=== PATIENT | female | born 1985 | race Caucasian/White ===

== ENCOUNTER 2025-03-31 13:02 | Outpatient (CLI) | payer OTHER | END 2025-03-31 13:50 | disposition home or self-care (01) | LOC: NST 13:02 | PROVIDERS: ATTEND Obstetrics & Gynecology | DX: Z34.83 Encounter for supervision of other normal pregnancy, third trimester (principal) ==

== ENCOUNTER 2025-04-08 05:44 | Inpatient (IN) | payer OTHER ==
[2025-04-08] VITALS (8 sets, daily range): BP systolic 122–149; BP diastolic 69–98
[~2025-04-08] VITALS: Ht 167.6 cm; Wt 83.5 kg
[2025-04-08] MEDS ORDERED: RINGERS SOLUTION,LACTATED 1,000 ML IV SCH (06:15)
[2025-04-08] MEDS ORDERED: OXYTOCIN 500 ML IV SCH (06:15)
[2025-04-08] MEDS ORDERED: CHILDREN'S ASPI81 MG PO (07:18)
[2025-04-08] MEDS ORDERED: PRENATAL TABLE1 EAC1 PO (07:20)
[2025-04-08] MEDS ORDERED: OXYTOCIN 500 ML IV ONE (07:30)
[2025-04-08 08:07] LABS: URINE APPEARANCE Clear; URINE BILIRRUBIN Negative (NEGATIVE); URINE BLOOD Small; URINE COLOR Yellow; URINE GLUCOSE Negative (NEGATIVE); URINE KETONE Negative (NEGATIVE); URINE LEUKOCYTE Trace; URINE NITRATE Negative; URINE PROTEIN Negative (NEGATIVE); URINE UROBILINOGEN 0.2 E.U./dl
[2025-04-08 08:09] LABS: URINE BACTERIA 92.3 uL (0.0-1933); URINE CAST 0.00 uL (0.0-1.40); URINE EPITHELIAL CELLS 5.5 uL (0.0-38.8); URINE RBC 78.3 uL (0.0-20.8); URINE WBC 6.1 uL (0.0-23.2)
[2025-04-08 08:10] LABS: BASO % 0.5 % (0.1-1.2); EOS # 0.05 (0.04-0.54); EOS % 0.6 % (0.7-7.0); LYMPH # 1.62 (1.18-3.74); LYMPH % 19.4 % (19.3-53.1); MONO # 0.56 (0.24-0.82); MONO % 6.7 % (4.7-12.5); NEUT # 6.06 (1.56-6.13); NEUT % 72.3 % (34.0-71.1); RED CELL DISTRIBUTION WIDTH 13.5 % (11.6-14.4)
[2025-04-08 08:33] LABS: INR 0.94
[2025-04-08 08:54] LABS: ALT/SGPT 25.0 U/L (12-78); AST/SGOT 23.0 U/L (15-37); BILIRUBIN TOTAL 0.44 mg/dL (0.3-1.2); BUN CREA RATIO 14.0 (7.0-25.0); CREATININE SERUM 0.7 mg/dL (0.55-1.02); GFR 93.16; GLOBULINA 4.2 G/DL (2.4-3.5); GLUCOSE FASTING 65.0 mg/dL (65-100); OSMOLALITY SERUM 277.0 MOSM/KG (275-295)
[2025-04-08] MEDS ORDERED: MORPHINE SULFATE 4 MG/ML CARTRIDGE IV PRN (15:00)
[2025-04-08] MEDS ORDERED: OXYTOCIN 1,000 ML IV SCH (16:30)
[2025-04-08] MEDS ORDERED: CHLORHEXIDINE GLUCONATE 120 ML BOTTLE TOP ONE (16:30)
[2025-04-08] MEDS ORDERED: DOCUSATE SODIUM 100MG CAP PO SCH (17:00)
[2025-04-09 02:27] VITALS: BP 124/81
[2025-04-09 06:23] LABS: BASO % 0.2 % (0.1-1.2); EOS # 0.06 (0.04-0.54); EOS % 0.5 % (0.7-7.0); LYMPH # 1.65 (1.18-3.74); LYMPH % 13.6 % (19.3-53.1); MEAN PLATELET VOLUME 14.00 fl (9.4-12.4); MONO # 0.90 (0.24-0.82); MONO % 7.4 % (4.7-12.5); NEUT # 9.44 (1.56-6.13); NEUT % 78.0 % (34.0-71.1); RED CELL DISTRIBUTION WIDTH 13.4 % (11.6-14.4)
[2025-04-09 08:00] VITALS: BP 110/65
[2025-04-09] MEDS ORDERED: PNV,CALCIUM 72/IRON/FOLIC ACID 1 TAB TABLET PO SCH (09:00)
[2025-04-09] MEDS ORDERED: IRON/V.C/V.B12/FOLIC A/VIT. E 1 CAPL CAPLET PO SCH (09:00)
[2025-04-09 16:42] VITALS: BP 130/80
[2025-04-09] MEDS ORDERED: HYDROCORTISONE 2.5% 30 GM TUBE RECTAL SCH (23:45)
[2025-04-10 03:02] VITALS: BP 109/71
[2025-04-10 09:02] VITALS: BP 138/88
== END 2025-04-10 16:33 | disposition home or self-care (01) | DRG 807 ==
LOC: LDR 05:44 → OB/GYN 18:25
PROVIDERS: Obstetrics & Gynecology Gynecology; ADMIT Obstetrics & Gynecology; ATTEND Obstetrics & Gynecology
PROC: 10E0XZZ Delivery of Products of Conception, External Approach (ICD-10-PCS; principal; 2025-04-08)
PROC: 0KQM0ZZ Repair Perineum Muscle, Open Approach (ICD-10-PCS; 2025-04-08)
PROC: 4A1HXCZ Monitoring of Products of Conception, Cardiac Rate, External Approach (ICD-10-PCS; 2025-04-08)
DX: O70.1 Second degree perineal laceration during delivery (principal); Z37.0 Single live birth; Z3A.37 37 weeks gestation of pregnancy